=== PATIENT | male | born 1935 | race Caucasian/White ===

== ENCOUNTER 2024-09-04 00:21 | Inpatient (IN) | payer OTHER ==
[2024-09-04 00:56] VITALS: BMI 24.4
[2024-09-04 00:56] LABS: MCHC 29.6 g/dl (32.3-36.5); MEAN CELL VOLUME 100.5 fl (79.0-92.2); MEAN PLT VOLUME 11.1 fl (9.4-12.4); RDW 16.0 % (12.6-16.6)
[2024-09-04 00:58] LABS: BG HCT 20.0 % (35.4-49); VENOUS BASE EXCESS -16.4 mmol/L (-2-2); VENOUS O2 SATURATION 24.4 % (70-80); VENOUS PCO2 33.4 mmHg (38-52)
[2024-09-04] MEDS ORDERED: PIPERACILLIN/TAZOB 4.5 GM 4.5 GM/100 ML BAG IVPB ONE (00:59)
[2024-09-04 01:02] LABS: VENOUS PH 7.142 (7.310-7.410)
[2024-09-04 01:07] LABS: INR 2.15 (0.83-1.09); PROTHROMBIN TIME (PATIENT) 23.4 SEC (9.7-13.0)
[2024-09-04 01:10] LABS: ACTIVATED PTT 33.3 SECONDS (25.2-36.5)
[2024-09-04 01:15] LABS: CO2 14 mmol/L (21-32); GLUCOSE,RANDOM 59 mg/dL (74-106)
[2024-09-04] MEDS ORDERED: LORazepam 2 MG/ML SDV VIAL IM ONE (01:15)
[2024-09-04 01:18] LABS: CREATININE 2.3 mg/dL (0.55-1.3); SGOT/AST 140 U/L (15-37); SGPT/ALT 100 U/L (13-61)
[2024-09-04] MEDS: PIPERACILLIN/TAZOB 4.5 GM 4.5 GM in DEXTROSE 5%-WATER 100 ML IVPB ONE (01:18)
[2024-09-04 01:20] LABS: TOT PROT 5.6 g/dl (6.4-8.2)
[2024-09-04 01:21] LABS: ALK PHOS 87 U/L (45-117)
[2024-09-04] MEDS: LORazepam 4 MG/1 ML VIAL IM ONE (01:22)
[2024-09-04 01:27] VITALS: TEMP 99.4
[2024-09-04] MEDS: SODIUM CHLORIDE 0.9% 500 ML INFUS.BAG IV ONE (01:34)
[2024-09-04] MEDS ORDERED: ALBUTEROL SO4 2.5/IPRATROPIUM 0.5 INH SOL 3 ML VIAL.NEB. NEB ONE (01:40)
[2024-09-04] MEDS ORDERED: DEXTROSE 50%-WATER 25 GM/50 ML DISP.SYRIN ONE (01:42)
[2024-09-04] MEDS: ALBUTEROL SO4 0.083% IH SOL 2.5 MG/3 ML VIAL.NEB. NEB SCH (01:53)
[2024-09-04] MEDS: DEXTROSE 50%-WATER - 25 GM/50 ML VIAL IVPUSH ONE (01:55)
[2024-09-04] MEDS ORDERED: CALCIUM GLUC IN NACL, ISO-OSM 1 GM/50 ML BAG IVPB ONE ×2 (01:57→02:00)
[2024-09-04] MEDS: CALCIUM GLUCONATE 10% - 1,000 MG/10 ML VIAL IVPB ONE (01:57)
[2024-09-04] MEDS: VANCOMYCIN PREMIX 1.5 GM 1,500 MG/300 ML BAG IVPB ONE (01:58)
[2024-09-04 02:44] LABS: LACTIC ACID 16.9 mmol/L (0.4-2.0)
[2024-09-04] MEDS: SODIUM ZIRCONIUM CYCLOSILICATE (LOKELMA) 5 GM PACKET PO ONE (03:00)
[2024-09-04] MEDS ORDERED: SODIUM ZIRCONIUM CYCLOSILICATE (LOKELMA) 10 GM PACKET ONE (03:20)
[2024-09-04] MEDS ORDERED: SODIUM ZIRCONIUM CYCLOSILICATE (LOKELMA) 5 GM PACKET ONE (03:23)
[2024-09-04 03:46] VITALS: BP 143/61
[2024-09-04 05:29] LABS: LACTIC ACID 17.8 mmol/L (0.4-2.0)
[2024-09-04] MEDS: MORPHINE SULFATE/0.9% NACL/PF 100 MG/100 ML BAG IVPB SCH (05:44)
[2024-09-04 06:01] LABS: CO2 10.0 mmol/L (21-32); GLUCOSE,RANDOM 118.0 mg/dL (74-106)
[2024-09-04 06:02] VITALS: PULSE 67; RESP 21
[2024-09-04 06:04] LABS: CREATININE 2.4 mg/dL (0.55-1.3)
== END 2024-09-04 12:00 | disposition expired | DRG 951 ==
LOC: JER 00:21 → JERBED 06:00
PROVIDERS: ADMIT Internal Medicine; ATTEND Internal Medicine
DX: Z51.5 Encounter for palliative care (principal); J18.9 Pneumonia, unspecified organism; J96.01 Acute respiratory failure with hypoxia; E87.20 Acidosis, unspecified; E87.5 Hyperkalemia; G30.9 Alzheimer's disease, unspecified; F02.80 Dementia in other diseases classified elsewhere, unspecified severity, without behavioral disturbance, psychotic disturbance, mood disturbance, and anxiety; E16.2 Hypoglycemia, unspecified
CPT/HCPCS: 36415; 71045-TC-FY; 71250-TC; 80048; 80053; 82803; 82962; 83605; 84484; 85025; 85610; 85730; 86850; 86900; 86901; 86922; 87040; 87637-QW; 93005; 93010; 99291